=== PATIENT | female | born 1950 | race Asian ===

== ENCOUNTER 2022-12-15 09:47 | Outpatient (CLI) | payer MEDICARE | END 2022-12-15 09:48 | disposition home or self-care (01) | LOC: CSHMAMMO 09:47 | PROVIDERS: ATTEND Family Medicine Sports Medicine | DX: Z13.820 Encounter for screening for osteoporosis (principal); M85.89 Other specified disorders of bone density and structure, multiple sites; Z78.0 Asymptomatic menopausal state | CPT/HCPCS: 77080 ==